=== PATIENT | male | born 2000 | race Caucasian/White ===

== ENCOUNTER 2021-04-04 05:11 | Emergency (ER) | payer OTHER ==
[2021-04-04 07:20] LABS: HEMOGLOBIN 14.8 gm/dl (14.0-17.5); RED BLOOD COUNT 4.81 M/UL (4.20-5.50); WHITE BLOOD COUNT 10.7 K/UL (4.5-11.0)
[2021-04-04 07:32] LABS: BUN/CREATININE RATIO 24 (0-10)
[2021-04-04] MEDS ORDERED: ENDOCET 5-3251 EACH PO (08:04)
== END 2021-04-04 12:06 | disposition home or self-care (01) ==
LOC: ER1 05:11
PROVIDERS: Family Medicine
DX: S01.81XA Laceration without foreign body of other part of head, initial encounter (principal); S01.511A Laceration without foreign body of lip, initial encounter; S80.211A Abrasion, right knee, initial encounter; Z23 Encounter for immunization; V49.40XA Driver injured in collision with unspecified motor vehicles in traffic accident, initial encounter; W22.11XA Striking against or struck by driver side automobile airbag, initial encounter; Y92.410 Unspecified street and highway as the place of occurrence of the external cause
CPT/HCPCS: 12011; 70450; 70486; 71260; 72125; 72128; 72131; 80053; 82550; 82553; 83690; 83874; 84484; 85025; 90471; 90714; 96374; 96375; 99284; J2405; J2550